=== PATIENT | male | born 1975 | race Caucasian/White ===

== ENCOUNTER 2018-11-09 04:58 | Emergency (ER) | payer MEDICARE, MEDICAID ==
[~2018-11-09] VITALS: Ht 165.1 cm; Wt 63.5 kg
[2018-11-09 04:58] VITALS: BP 127/104
--- NOTE | 2018-11-09 04:58 | NUR ---
[facility] TO ER BED 6
[2018-11-09] MEDS ORDERED: TRANEXAMIC ACID 1,000 MG in NACL 0.9% 50 ML IV STA (05:01)
[2018-11-09] MEDS ORDERED: NACL 0.9% 1,000 ML IV ONE ×2 (05:15→07:00)
[2018-11-09] MEDS ORDERED: SYN.05 PO (05:19)
[2018-11-09] MEDS ORDERED: IMI25 PO (05:19)
--- NOTE | 2018-11-09 05:20 | NUR ---
C/O UNCONTROLLABLE EPITAXIS. SX AT [facility] ON 11/01/18. UNABLE TO CONTROLL BLEEDING. CALLED 911 FROM HOME. HYPERTENSIVE 127/104. DIAPHORETIC. DENIES PAIN. STATES THE BLEEDING WAS UNPROVOKED. SPITTING UP AND VOMITING BLOOD. ERMD AWARE. VSS.
[2018-11-09] MEDS ORDERED: TRANEXAMIC ACID 1,000 MG/10 ML VIAL IV ONE ×2 (05:22→05:47)
[2018-11-09] MEDS ORDERED: ONDANSETRON 4 MG/2 ML VIAL IVP ONE (05:25)
[2018-11-09] MEDS ORDERED: TRANEXAMIC ACID IV ONE (05:35)
[2018-11-09] MEDS ORDERED: NACL 0.9% IV ONE (05:35)
--- NOTE | 2018-11-09 05:40 | NUR ---
DR ÁLVAREZ AT BEDSIDE. ADMINISTERED MEDICATION THROUGH SOAKED GAUZE IN BOTH NARES.
[2018-11-09 05:44] LABS: BASOPHILS # (AUTO) 0.1 K/uL (0.00-0.22); BASOPHILS % (AUTO) 0.4 % (0.0-2.0); EOSINOPHILS # (AUTO) 0.8 K/uL (0-0.4); EOSINOPHILS % (AUTO) 6.3 % (0.0-4.0); HEMATOCRIT 42.8 % (36-52); HEMOGLOBIN 14.5 g/dL (12.0-18.0); LYMPHOCYTES # (AUTO) 5.2 K/uL (2.0-11.5); LYMPHOCYTES % (AUTO) 40.4 % (20.5-51.1); MEAN CORPUSCULAR HEMOGLOBIN 32 pg (27-31); MEAN CORPUSCULAR HGB CONC 34 g/dL (33-37); MEAN CORPUSCULAR VOLUME 94.3 fL (80-94); MONOCYTES # (AUTO) 0.9 K/uL (0.8-1.0); MONOCYTES % (AUTO) 7.3 % (1.7-9.3); NEUTROPHILS # (AUTO) 5.9 K/uL (1.8-7.7); NEUTROPHILS % (AUTO) 45.6 % (42.2-75.2); PLATELET COUNT (AUTO) 335 K/uL (140-450); RED BLOOD CELL COUNT(AUTO) 4.54 MIL/uL (4.20-6.10); RED CELL DISTRIBUTION WIDTH 13.6 % (11.6-13.7); WHITE BLOOD COUNT (AUTO) 12.9 K/uL (4.8-10.8)
[2018-11-09 05:47] LABS: PROTHROMBIN TIME 10.1 secs (10.8-13.4)
[2018-11-09 06:09] LABS: ALBUMIN 3.8 g/dL (3.4-5.0); CREATININE 1.5 mg/dL (0.7-1.3); TOTAL BILIRUBIN 0.4 mg/dL (0.0-1.0)
[2018-11-09 06:14] LABS: CARBON DIOXIDE 23.9 mmol/L (21-32); POTASSIUM 3.9 mmol/L (3.5-5.1)
[2018-11-09] MEDS ORDERED: HYDR2TAB6 PO (06:16)
[2018-11-09] MEDS ORDERED: GABA300C PO (06:16)
[2018-11-09] MEDS ORDERED: HYDR-4030 PO (06:16)
[2018-11-09] MEDS ORDERED: NALO4SPR NS (06:16)
[2018-11-09] MEDS ORDERED: SENN1TAB88 PO (06:16)
[2018-11-09] MEDS ORDERED: COLC0.6C PO (06:16)
[2018-11-09] MEDS ORDERED: ZYL300 PO (06:16)
[2018-11-09] MEDS ORDERED: TOPI50TA PO (06:16)
--- NOTE | 2018-11-09 06:20 | NUR ---
PATIENT CHOCKING SUDDENLY, COUGHED UP THICK LARGE BLOOD CLOT. BREATHING RETURNED TO NORMAL. PATIENT EDUCATED TO KEEP HIS HEAD FORWARD. ERMD MADE AWARE.
--- NOTE | 2018-11-09 06:52 | NUR ---
PATIENT BP DROPPED TO 73/44, PATIENT STATES HE IS FEELING DIZZY, DR ÁLVAREZ MADE AWARE. 1000ML NS BOLUS STARTED PER ORDERS.
--- NOTE | 2018-11-09 07:02 | NUR ---
PATIENT STATES HE IS FEELING BETTER. BP 96/63
--- NOTE | 2018-11-09 07:15 | NUR ---
received report from Ashley SHEEHAN. PT ALERT,VENTURA ; ON NOSE PLUG; NO ACTIVE BLEEDING. AT BEDSIDE. Vital Signs within normal limits. Respirations even and unlabored.WILL CONTINUE TO MONITOR. Addendum: 11/09/18 at 0734 by [email or web address] BP 100/68
--- NOTE | 2018-11-09 07:52 | NUR ---
spoke to robert ; TRANSFER STAFF. [phone]. AMBULANCE ETA 8.30.
--- NOTE | 2018-11-09 07:52 | NUR ---
Blayne gallegos in ED - 11/09/18 at 0758 by MED1 spoke to valerie ; TRANSFER STAFF. [phone]. AMBULANCE ETA 8.30.
--- NOTE | 2018-11-09 08:00 | NUR ---
reported gIven to LINDA FRYE.
--- NOTE | 2018-11-09 08:00 | NUR ---
Blayne gallegos in [facility] - 11/09/18 at 0843 by MED1 cristy FRYE.
--- NOTE | 2018-11-09 08:44 | NUR ---
Patient appears to be resting comfortably in bed. NO ACTIVE BLEEDING.Vital Signs within normal limits. Respirations even and unlabored.
[2018-11-09 09:02] VITALS: BP 110/73
--- NOTE | 2018-11-09 09:02 | NUR ---
Patient to be transferred to [facility]. Is being transferred due to INSURACE REQUEST. Receiving facility has accepting physician and available space. ER physician has signed transfer form. Patient or responsible alliance party has agreed to transfer and signed form. Patient belongings inventoried and will be sent with patient. Copy of nursing notes, lab reports, EKG, Physicians Orders and X-rays to be sent with patient. Report called to LINDA SHEEHAN at receiving facility. [facility] service has been called for transfer. ETA is 8.30 AM.
== END 2018-11-09 09:02 | disposition short-term general hospital (02) ==
LOC: MED 04:58
DX: M96.830 Postprocedural hemorrhage of a musculoskeletal structure following a musculoskeletal system procedure (principal); R04.0 Epistaxis; R11.2 Nausea with vomiting, unspecified; I10 Essential (primary) hypertension; E07.9 Disorder of thyroid, unspecified; Z79.899 Other long term (current) drug therapy; Y83.8 Other surgical procedures as the cause of abnormal reaction of the patient, or of later complication, without mention of misadventure at the time of the procedure
CPT/HCPCS: 36415; 71045; 80053; 84484; 85025; 85610; 85730; 93005; 96365; 96366; 96375; 99284; J2405; J3490; J7030; Q0092